=== PATIENT | female | born 1995 | race Caucasian/White ===

== ENCOUNTER → 2022-03-26 | Outpatient (CLI) | payer BC ==
--- NOTE | 2022-03-27 09:23 | Diagnostic Imaging Report ---
INDICATION: Supervision of normal . Anatomy scan. TECHNIQUE: Multiple real-time grayscale images were obtained over the gravid uterus. COMPARISON: None FINDINGS: A single live intrauterine gestation is visualized in cephalic presentation. heart tones measure 156 bpm. The placenta is anterior and not low lying. The NAYLA is normal measuring 10.2 cm. The cervix is closed and measures 3.4 cm in length. The kidneys, bladder, stomach, brain, four-chamber heart, three-vessel cord, spine, and cord insertion are visualized and have a normal sonographic appearance. No abnormalities are identified. Views of the adnexa demonstrate no evidence of mass or free fluid. Biometrical measurements are as follows: Biparietal 5.65 cm, age 23 weeks 2 days. Head circumference 21.32 cm, age 23 weeks 3 days. Abdominal circumference 18.20 cm, age 23 weeks 1 days. Femur length 4.09 cm, age 23 weeks 2 days. Sonographic estimate age: 23 weeks 2 days. Sonographic estimated date of delivery: 07/21/2022. Estimated Weight: 569 gm (+/- 83 gm). LMP percentile: 30%. heart rate: 156 beats per minute. number: 1 of 1. IMPRESSION: 1. Single live intrauterine gestation measuring 23 weeks 2 days and estimated due date of 07/21/2022. These are within range of the clinical dates. 2. No anatomic abnormalities are identified. Dictated by: Dictated on workstation # [id number]
== END ==
LOC: RAD 15:00
PROVIDERS: ATTEND Nurse Practitioner Women's Health
DX: Z36.9 Encounter for antenatal screening, unspecified (principal); Z3A.23 23 weeks gestation of pregnancy
CPT/HCPCS: 76805

== ENCOUNTER 2022-07-06 18:34 | Inpatient (IN) | payer OTHER ==
[2022-07-06] VITALS (7 sets, daily range): BP systolic 107–132; BP diastolic 56–68
[2022-07-06] MEDS ORDERED: D5 LR IV SOLUTION 1,000 ML IV ONE (19:05)
[2022-07-06] MEDS ORDERED: OXYTOCIN PRE-MIX DRIP 500 ML IV ONE (19:05)
[2022-07-06] MEDS ORDERED: LIDOCAINE 1% INJ 10 ML VIAL ONE (19:10)
[2022-07-06 19:54] LABS: BASOPHILS # (AUTO) 0.1 10^3/uL (0.0-0.1); BASOPHILS % (AUTO) 0 % (0-10); EOSINOPHILS % (AUTO) 0 % (0-10); HEMATOCRIT 37 % (35-52); HEMOGLOBIN 13.1 g/dL (11.5-16.0); LYMPHOCYTES # (AUTO) 1.6 10^3/uL (1.0-4.0); LYMPHOCYTES % (AUTO) 8 % (12-44); MEAN CORPUSCULAR HEMOGLOBIN 32 pg (25-34); MEAN CORPUSCULAR HGB CONC 35 g/dL (32-36); MEAN CORPUSCULAR VOLUME 89 fL (80-99); MEAN PLATELET VOLUME 9.8 fL (9.0-12.2); MONOCYTES # (AUTO) 0.6 10^3/uL (0.0-1.0); MONOCYTES % (AUTO) 3 % (0-12); NEUTROPHILS # (AUTO) 17.9 10^3/uL (1.8-7.8); NEUTROPHILS % (AUTO) 88 % (42-75); PLATELET COUNT 196 10^3/uL (130-400); WHITE BLOOD COUNT 20.2 10^3/uL (4.3-11.0)
[2022-07-06] MEDS ORDERED: D5 LR IV SOLUTION 1,000 ML IV SCH (20:00)
[2022-07-06] MEDS ORDERED: MINERAL OIL 30 ML UDC TOP PRN (20:00)
[2022-07-06] MEDS ORDERED: IBUPROFEN 600 MG (MOTRIN) TAB PO ONE (20:04)
--- NOTE | 2022-07-06 20:14 | History & Physical-OB/GYN ---
History of Present Illness History of Present Illness Reason for visit/HPI Labor Date of Admission Jul 06, 2022 at 18:45 Date Seen by a Provider: Jul 06, 2022 Time Seen by a Provider: 19:15 I consulted on this patient on 07/06/22 20:09 Attending Physician Teresa Rmaon MD Admitting Physician Admitting Physician: Teresa Ramon MD Attending Physician: Teresa Ramon MD Consult Allergies and Home Medications Allergies Coded Allergies: amoxicillin (Verified Allergy, Unknown, 07/06/22) shellfish derived (Verified Allergy, Unknown, 07/06/22) Patient Home Medication List Home Medication List Reviewed: Yes Past Hyiodba-Cychfv-Bmoywx Hx Surgeries No Respiratory No Currently Using CPAP: No Currently Using BIPAP: No Cardiovascular No Neurological No Reproductive System : Yes Genitourinary No Gastrointestinal No Musculoskeletal No Endocrine History of Endocrine Disorders: No Review of Systems Constitutional: no symptoms reported EENTM: no symptoms reported Respiratory: no symptoms reported Cardiovascular: no symptoms reported Gastrointestinal: no symptoms reported Genitourinary: no symptoms reported : Yes Musculoskeletal: no symptoms reported Skin: no symptoms reported Psychiatric/Neurological: No Symptoms Reported Physical Exam Physical Exam Vital Signs Capillary Refill : Labs Laboratory Tests 07/06/22 19:05: White Blood Count 20.2H, Red Blood Count 4.16, Hemoglobin 13.1, Hematocrit 37, Mean Corpuscular Volume 89, Mean Corpuscular Hemoglobin 32, Mean Corpuscular Hemoglobin Concent 35, Red Cell Distribution Width 13.2, Platelet Count 196, Mean Platelet Volume 9.8, Immature Granulocyte % (Auto) 1, Neutrophils (%) (Auto) 88H, Lymphocytes (%) (Auto) 8L, Monocytes (%) (Auto) 3, Eosinophils (%) (Auto) 0, Basophils (%) (Auto) 0, Neutrophils # (Auto) 17.9H, Lymphocytes # (Auto) 1.6, Monocytes # (Auto) 0.6, Eosinophils # (Auto) 0.0, Basophils # (Auto) 0.1, Immature Granulocyte # (Auto) 0.1 General Appearance: Mild Distress (In labor) Respiratory: Normal Breath Sounds, No Respiratory Distress Cardiovascular: Normal Peripheral Pulses Abdominal: tenderness (In labor) Cervix OS: open (10/100/+1 at time of my evaluation) Assessment/Plan Assessment and Plan A/P: 27 yo at 38w GA presenting with active labor. FHT Cat II with moderate variability; will manage expectantly and augment if indicated. Details otherwise as outlined above Problems: (1) 38 weeks gestation of (2) Uterine contractions Admission Diagnosis Admission Status: Observation (If all goes well may stay under 2 midnights) Diagnosis/Problems Diagnosis/Problems (1) 38 weeks gestation of (2) Uterine contractions TERESA RAMON MD Jul 06, 2022 20:14
--- NOTE | 2022-07-06 20:16 | OB Labor & Delivery Record ---
Vag Delivery Note Vag Delivery Note Date of Delivery: 07/06/22 Preoperative Diagnosis: Kori winchester a (27 /Para / ,Gestational Age 38w0d Postoperative Diagnosis: Same Surgeon: TERESA ISAAC [employer] Plug[employer]: n/a Anesthesia: n/a Delivery Type: Findings: Viable infant, Lacerations: 2nd degree perineal Intact placenta with 3 vessel cord. No nuchal cord, body cord or shoulder dystocia Estimated Blood Loss: 200 ml Complications: None Condition: Stable Description of Procedure: The patient is a 27 year old female who presented in spontaneous labor. She was admitted and informed consent was obtained. Her labor course was uncomplicated. She progressed to complete dilatation and began to push. She was then set up for delivery. The 's head was delivered atraumatically in the OA position. The shoulders and remainder of the 's body were then delivered without difficulty. Upon delivery, the was vigorous and placed on maternal chest and the mouth and nares were bulb suctioned. After a delay cord was doubly clamped and cut and the remained on maternal chest. An intact placenta with 3-vessel cord delivered and there was found to be minimal bleeding.~ Vigorous fundal massage was performed and the fundus was found to be firm. IV oxytocin was given. Examination of the vagina and perineum revealed a 2nd degree perineal laceration repaired in the usual fashion with 3-0 vicryl rapide suture. Following the repair, sponge, instrument and needle counts were correct. Mom and baby were both in stable condition in the labor suite. Vitals - Labs Labs Laboratory Tests 07/06/22 19:05: White Blood Count 20.2H, Red Blood Count 4.16, Hemoglobin 13.1, Hematocrit 37, Mean Corpuscular Volume 89, Mean Corpuscular Hemoglobin 32, Mean Corpuscular Hemoglobin Concent 35, Red Cell Distribution Width 13.2, Platelet Count 196, Mean Platelet Volume 9.8, Immature Granulocyte % (Auto) 1, Neutrophils (%) (Auto) 88H, Lymphocytes (%) (Auto) 8L, Monocytes (%) (Auto) 3, Eosinophils (%) (Auto) 0, Basophils (%) (Auto) 0, Neutrophils # (Auto) 17.9H, Lymphocytes # (Auto) 1.6, Monocytes # (Auto) 0.6, Eosinophils # (Auto) 0.0, Basophils # (Auto) 0.1, Immature Granulocyte # (Auto) 0.1 TERESA ISAAC MD Jul 06, 2022 20:16
[2022-07-06 20:22] LABS: BAND NEUTROPHILS 11 %; LYMPHOCYTES % (MANUAL) 11 %; NEUTROPHILS % (MANUAL) 74 %
[2022-07-06 20:23] LABS: MONOCYTES % (MANUAL) 4 %
[2022-07-06] MEDS ORDERED: BENZOCAINE/MENTHOL (DERMOPLAST) 56 ML CAN TP ONE (20:40)
[2022-07-06] MEDS ORDERED: WITCH HAZEL(TUCKS) 40 EA JAR ONE (20:41)
[2022-07-06] MEDS ORDERED: BENZOCAINE/MENTHOL (DERMOPLAST) 56 ML CAN TP PRN ×2 (20:45→21:15)
[2022-07-06] MEDS ORDERED: WITCH HAZEL(TUCKS) 40 EA JAR TOP PRN ×2 (20:45→21:15)
[2022-07-06] MEDS ORDERED: TETANUS,DIPTH,PERTUSS P/F (BOOSTRIX) 0.5 ML VIAL IM ONE (20:45)
[2022-07-06] MEDS: IBUPROFEN 600 MG (MOTRIN) TAB PO SCH (20:47)
[2022-07-06] MEDS ORDERED: CATHETER FLUSH 10 ML SYR IV SCH (22:00)
[2022-07-07] MEDS: ACETAMINOPHEN 500 MG TAB (TYLENOL) PO SCH ×4 (01:14→16:48)
[2022-07-07] MEDS: DOCUSATE SODIUM 100 MG (COLACE) CAP PO SCH ×3 (01:14→21:54)
[2022-07-07 01:15] VITALS: BP 113/64
[2022-07-07] MEDS ORDERED: OXYTOCIN PRE-MIX DRIP 500 ML IV ONE (02:00)
[2022-07-07] MEDS: IBUPROFEN 600 MG (MOTRIN) TAB PO SCH ×4 (02:02→21:55)
[2022-07-07 05:13] VITALS: BP 93/54
[2022-07-07 05:58] LABS: BASOPHILS # (AUTO) 0.1 10^3/uL (0.0-0.1); BASOPHILS % (AUTO) 0 % (0-10); EOSINOPHILS % (AUTO) 0 % (0-10); HEMATOCRIT 32 % (35-52); HEMOGLOBIN 10.9 g/dL (11.5-16.0); LYMPHOCYTES # (AUTO) 2.2 10^3/uL (1.0-4.0); LYMPHOCYTES % (AUTO) 13 % (12-44); MEAN CORPUSCULAR HEMOGLOBIN 31 pg (25-34); MEAN CORPUSCULAR HGB CONC 35 g/dL (32-36); MEAN CORPUSCULAR VOLUME 91 fL (80-99); MEAN PLATELET VOLUME 9.7 fL (9.0-12.2); MONOCYTES # (AUTO) 0.9 10^3/uL (0.0-1.0); MONOCYTES % (AUTO) 6 % (0-12); NEUTROPHILS # (AUTO) 13.4 10^3/uL (1.8-7.8); NEUTROPHILS % (AUTO) 81 % (42-75); PLATELET COUNT 175 10^3/uL (130-400); WHITE BLOOD COUNT 16.6 10^3/uL (4.3-11.0)
--- NOTE | 2022-07-07 07:11 | Postpartum Progress Note ---
Note Note Day # 1 Subjective: Patient is without complaints. Ambulating, voiding. Tolerating a regular diet without nausea or vomiting. Normal lochia. Pain is well controlled with oral pain medications. breast feeding. Objective: VSS, see flowsheet Physical Exam: General - Alert and oriented, no apparent distress Abdomen - Soft, appropriately tender to palpation, non-distended, fundus firm at umbilicus Extremities - no edema Assessment: P1, post- day # 1, status post vaginal delivery. Recovering well, hemodynamically stable Plan: Routine care. Encourage breast feeding. Encourage ambulation. Ferrous sulfate supplementation. Plan for discharge today or tomorrow, pending baby's dispo Vitals - Labs Vital Signs - I&O Vital Signs Date Time Temp Pulse Resp B/P (MAP) Pulse Ox O2 Delivery O2 Flow Rate FiO2 07/07/22 05:13 36.5 81 18 93/54 (67) 98 Room Air 07/07/22 01:15 36.4 70 18 113/64 (80) 99 Room Air 07/06/22 21:20 36.8 69 18 115/63 (80) 07/06/22 21:09 18 113/56 (75) 07/06/22 20:54 78 18 110/61 (77) 07/06/22 20:39 36.9 82 18 107/60 (76) 07/06/22 20:24 76 18 111/67 (82) 07/06/22 20:09 36.7 71 18 122/68 (86) 07/06/22 19:20 36.8 77 18 99 Room Air I & O 07/07/22 07:00 Intake Total 800 ml Balance 800 ml Labs Laboratory Tests 07/06/22 19:05: White Blood Count 20.2H, Red Blood Count 4.16, Hemoglobin 13.1, Hematocrit 37, Mean Corpuscular Volume 89, Mean Corpuscular Hemoglobin 32, Mean Corpuscular Hemoglobin Concent 35, Red Cell Distribution Width 13.2, Platelet Count 196, Mean Platelet Volume 9.8, Immature Granulocyte % (Auto) 1, Neutrophils (%) (Auto) 88H, Lymphocytes (%) (Auto) 8L, Monocytes (%) (Auto) 3, Eosinophils (%) (Auto) 0, Basophils (%) (Auto) 0, Neutrophils # (Auto) 17.9H, Lymphocytes # (Auto) 1.6, Monocytes # (Auto) 0.6, Eosinophils # (Auto) 0.0, Basophils # (Auto) 0.1, Immature Granulocyte # (Auto) 0.1, Neutrophils % (Manual) 74, Lymphocytes % (Manual) 11, Monocytes % (Manual) 4, Band Neutrophils 11 07/07/22 05:50: White Blood Count 16.6H, Red Blood Count 3.49L, Hemoglobin 10.9L, Hematocrit 32L , Mean Corpuscular Volume 91, Mean Corpuscular Hemoglobin 31, Mean Corpuscular Hemoglobin Concent 35, Red Cell Distribution Width 13.4, Platelet Count 175, Mean Platelet Volume 9.7, Immature Granulocyte % (Auto) 0, Neutrophils (%) (Auto) 81H, Lymphocytes (%) (Auto) 13, Monocytes (%) (Auto) 6, Eosinophils (%) (Auto) 0, Basophils (%) (Auto) 0, Neutrophils # (Auto) 13.4H, Lymphocytes # (Auto) 2.2, Monocytes # (Auto) 0.9, Eosinophils # (Auto) 0.0, Basophils # (Auto) 0.1, Immature Granulocyte # (Auto) 0.1 TERESA ISAAC MD Jul 07, 2022 07:11
[2022-07-07 08:15] VITALS: BP 106/62
[2022-07-07 12:45] VITALS: BP 99/58
[2022-07-07] MEDS ORDERED: DIBUCAINE 1% OINTMENT 28 GM TUBE TOP PRN (14:30)
[2022-07-07 16:45] VITALS: BP 114/61
[2022-07-07 21:57] VITALS: BP 112/61
== END 2022-07-07 22:15 | disposition home or self-care (01) | DRG 807 ==
LOC: WSo 18:34 → LDRP 18:34 → WSo 18:44 → LDRP 18:45
PROVIDERS: ADMIT Student in an Organized Health Care Education/Training Program; ATTEND Student in an Organized Health Care Education/Training Program
PROC: 10E0XZZ Delivery of Products of Conception, External Approach (ICD-10-PCS; principal; 2022-07-06)
PROC: 0KQM0ZZ Repair Perineum Muscle, Open Approach (ICD-10-PCS; 2022-07-06)
DX: O70.1 Second degree perineal laceration during delivery (principal); Z37.0 Single live birth; Z3A.38 38 weeks gestation of pregnancy; Z88.1 Allergy status to other antibiotic agents
CPT/HCPCS: 36415; 85007; 85025; 85027; 86780; 86850; 86900; 86901; 99212